=== PATIENT | male | born 1995 | race African-American/Black ===

== ENCOUNTER 2020-11-01 06:09 | Emergency (ER) | payer MEDICAID ==
[~2020-11-01] VITALS: Ht 182.9 cm; Wt 77.0 kg
[2020-11-01 07:21] LABS: BASOPHILS % 0.2 % (0.0-2.0); EOSINOPHILS % 0.5 % (0.0-5.0); HEMATOCRIT. 43.7 % (42.0-52.0); HEMOGLOBIN. 14.8 g/dL (14.0-18.0); LYMPHOCYTES % 14.9 % (20.0-50.0); MEAN CORPUSCULAR HEMOGLOBIN 31.2 pg (28.0-32.0); MEAN CORPUSCULAR VOLUME 92.1 fL (80.0-94.0); MEAN PLATELET VOLUME 9.9 fl (7.4-10.4); MONOCYTES % 6.5 % (2.0-8.0); NEUTROPHILS % 77.9 % (40.0-76.0); PLATELET 274 x1000/uL (130-400); RED BLOOD CELL COUNT 4.74 mill/uL (4.7-6.1)
[2020-11-01 07:27] LABS: CHLORIDE 103 mEq/L (98-107)
[2020-11-01 07:32] LABS: ETHANOL BLOOD < 10 mg/dL
[2020-11-01] MEDS ORDERED: CEPHALEXIN 250MG CAPSULE PO ONE (08:30)
[2020-11-01] MEDS ORDERED: TETANUS, DIPHTHERIA, PERTUSSIS VAC/PF 0.5ML (>7YR OLD) IM ONE (08:45)
[2020-11-01] MEDS ORDERED: CEPHALEXIN 250MG CAPSULE PO SCH (08:45)
[2020-11-01 10:00] LABS: CLARITY URINE CLEAR (CLEAR); COLOR URINE DARK YELLOW (YELLOW); KETONES URINE 4+ (NEGATIVE); LEUKOCYTE ESTERASE URINE TRACE (NEGATIVE); NITRITE URINE NEGATIVE (NEGATIVE); OCCULT BLOOD URINE NEGATIVE (NEGATIVE); PH URINE 5.5 (4.5-8.0); PROTEIN URINE 1+ (NEGATIVE); SPECIFIC GRAVITY URINE 1.035 (1.005-1.030)
[2020-11-01 10:12] LABS: *AMPHETAMINES SCREEN URINE PRESUMTIVE POSITIVE (NEGATIVE); *BARBITURATES SCREEN URINE NEGATIVE (NEGATIVE); *BENZODIAZEPINES SCREEN URINE NEGATIVE (NEGATIVE); *COCAINE SCREEN URINE NEGATIVE (NEGATIVE); CANNABINOID URINE SCREEN PRESUMTIVE POSITIVE (NEGATIVE); METHADONE URINE SCREEN NEGATIVE (NEGATIVE); OPIATES URINE SCREEN NEGATIVE (NEGATIVE)
[2020-11-01 10:13] LABS: PHENCYCLIDINE URINE SCREEN NEGATIVE (NEGATIVE)
[2020-11-01] MEDS: CEPHALEXIN 250MG CAPSULE PO SCH (18:53)
[2020-11-02] MEDS: CEPHALEXIN 250MG CAPSULE PO SCH ×2 (08:33→18:57)
[2020-11-02] MEDS ORDERED: LORAZEPAM 2MG/ML CPJ IM ONE (12:00)
[2020-11-02] MEDS ORDERED: ZIPRASIDONE MESYLATE 20MG/VIAL IM ONE (12:00)
[2020-11-04] MEDS: CEPHALEXIN 250MG CAPSULE PO SCH ×2 (10:41→10:42)
[2020-11-04 14:47] VITALS: BP 127/68
== END 2020-11-04 14:48 | disposition home or self-care (01) ==
LOC: ER 07:19
DX: S62.617B Displaced fracture of proximal phalanx of left little finger, initial encounter for open fracture (principal); Z20.822 Contact with and (suspected) exposure to COVID-19; F32.3 Major depressive disorder, single episode, severe with psychotic features; F91.3 Oppositional defiant disorder; F16.10 Hallucinogen abuse, uncomplicated; F15.10 Other stimulant abuse, uncomplicated; F12.90 Cannabis use, unspecified, uncomplicated; F10.10 Alcohol abuse, uncomplicated; Y90.0 Blood alcohol level of less than 20 mg/100 ml; F17.200 Nicotine dependence, unspecified, uncomplicated; Y93.89 Activity, other specified; Y92.89 Other specified places as the place of occurrence of the external cause; Z23 Encounter for immunization
CPT/HCPCS: 29125; 36415; 73130; 80053; 80305; 80307; 80320; 80329; 81003; 85025; 87086; 90471; 90715; 93005; 99285; C9803; J2060; J3486; U0003; Z7610; G0480